=== PATIENT | female | born 1960 | race Caucasian/White ===

== ENCOUNTER → 2021-12-18 | Day surgery (SDC) | payer OTHER ==
[~2021-12-18] VITALS: Ht 162.6 cm; Wt 77.1 kg
[~2021-12-18] MED LIST: ATORVASTATIN CA20 MG PO; AZELASTINE205.5 MCG1; FLUTICASONE PRO16 GM; LOSARTAN POTASS50 MG PO; PRILOSEC20 MG PO; TRAZODONE HCL50 MG PO; TRELEGY ELLIPT1 EAC1 INH; VENLAFAXINE HCL75 M1 PO; ZYRTEC10 M3 PO
[2021-12-18 08:33] LABS: HCT 43.2 % (37.0-47.0); HGB 14.1 g/dl (12.5-16.0); MCH 29.7 pg (25.0-31.0); MCHC 32.6 g/dL (32.0-36.0); MCV 91.1 fL (78.0-100.0); MPV 9.7 fL (6.0-9.5); RBC 4.74 M/uL (4.20-5.40); RDW 12.8 % (11.5-14.0); WBC 5.9 K/uL (4.0-10.5)
[2021-12-18 09:09] LABS: BILIRUBIN - TOTAL 0.7 mg/dL (0.2-1.0); BUN/CREAT RATIO (CALC) 16.9 RATIO; CREATININE 0.83 mg/dL (0.51-0.95); GLOBULIN (CALCULATION) 3.1 g/dL; POTASSIUM 4.1 mmol/L (3.5-5.1); TOTAL PROTEIN 7.1 g/dL (6.4-8.2)
== END | disposition home or self-care (01) ==
LOC: FAS 07:55
PROVIDERS: Surgery
DX: Z12.11 Encounter for screening for malignant neoplasm of colon (principal); D12.0 Benign neoplasm of cecum; D12.2 Benign neoplasm of ascending colon; K22.2 Esophageal obstruction; K29.50 Unspecified chronic gastritis without bleeding; K20.90 Esophagitis, unspecified without bleeding; I10 Essential (primary) hypertension; E78.5 Hyperlipidemia, unspecified; Z79.899 Other long term (current) drug therapy
CPT/HCPCS: 36415; 80053; C1726; J2704; J7120